=== PATIENT | male | born 1970 | race Caucasian/White ===

== ENCOUNTER 2025-08-11 06:19 | Day surgery (SDC) | payer BC, SELFPAY | END 2025-08-11 12:28 | disposition home or self-care (01) | LOC: GI 06:19 | PROVIDERS: ATTENDING PHYSICIAN Internal Medicine Gastroenterology | DX: Z12.11 Encounter for screening for malignant neoplasm of colon (principal); D12.3 Benign neoplasm of transverse colon; K57.30 Diverticulosis of large intestine without perforation or abscess without bleeding; Q43.8 Other specified congenital malformations of intestine; K64.8 Other hemorrhoids | CPT/HCPCS: 45385; 88305 ==